=== PATIENT | male | born 1975 | race Caucasian/White ===

== ENCOUNTER 2016-09-14 08:37 | Emergency (ER) | payer MEDICAID ==
[2016-09-14] MEDS ORDERED: DILAUDID 1 MG/ML AMP ONE (10:07)
== END 2016-09-14 13:03 | disposition home or self-care (01) ==
LOC: ER 08:37
DX: M16.0 Bilateral primary osteoarthritis of hip (principal); M47.896 Other spondylosis, lumbar region
CPT/HCPCS: 72100; 96374